=== PATIENT | male | born 1985 | race Caucasian/White ===

== ENCOUNTER 2019-09-05 14:02 | Outpatient (CLI) | payer OTHER | END 2019-09-05 23:59 | disposition home or self-care (01) | LOC: WOUND 14:02 | PROVIDERS: ATTEND Internal Medicine | DX: E11.621 Type 2 diabetes mellitus with foot ulcer (principal); L97.512 Non-pressure chronic ulcer of other part of right foot with fat layer exposed; L97.522 Non-pressure chronic ulcer of other part of left foot with fat layer exposed; Z87.891 Personal history of nicotine dependence; Z79.84 Long term (current) use of oral hypoglycemic drugs | CPT/HCPCS: 11042; 99215 ==

== ENCOUNTER 2019-10-31 12:28 | Emergency (ER) | payer SELFPAY ==
[~2019-10-31] VITALS: Ht 182.9 cm; Wt 86.0 kg
[2019-10-31] MEDS ORDERED: SODIUM CHLORIDE FLUSH 10ML SYR IVF ONE (13:30)
[2019-10-31] MEDS ORDERED: SODIUM CHLORIDE 0.9% 1,000ML IVBOLUS ONE (13:30)
[2019-10-31] MEDS ORDERED: VANCOMYCIN PER PHARMACY MC PRN (13:30)
[2019-10-31 13:46] LABS: MEAN CORPUSCULAR HEMOGLOBIN 29.5 pg (27.5-34.5); MEAN CORPUSCULAR HGB CONC 32.9 g/dL (33.2-36.2); MEAN CORPUSCULAR VOLUME 89.5 fL (81-97); MEAN PLATELET VOLUME 9.4 fL (7.4-10.4); PLATELET COUNT 313 x10^3/uL (130-400); RED CELL DISTRIBUTION WIDTH 12.4 % (9.4-14.8)
--- NOTE | 2019-10-31 13:50 | NUR ---
pt resting in room. vss. judson started. no needs expressed. awaiting further orders and plan.
[2019-10-31 13:57] LABS: ALBUMIN 3.2 g/dL (3.4-5.0); ANION GAP 7 mmol/L (5-15); CALCIUM 9.6 mg/dL (8.5-10.1); CHLORIDE 98 mmol/L (98-107); CREATININE 0.71 mg/dL (0.7-1.3)
[2019-10-31] MEDS ORDERED: VANCOMYCIN 2,000 MG in SODIUM CHLORIDE 0.9% 500 ML IV ONE (14:00)
[2019-10-31 14:42] LABS: MD SCAN
[2019-10-31 14:43] LABS: BASOPHILS # (AUTO) 0.07 x10^3/uL (0-0.1); BASOPHILS % (AUTO) 0 % (0-1); EOSINOPHILS # (AUTO) 0.01 x10^3/uL (0-0.4); EOSINOPHILS % (AUTO) 0 % (1-7); LYMPHOCYTES # (AUTO) 1.07 x10^3/uL (1-3.4); LYMPHOCYTES % (AUTO) 7 % (22-44); MONOCYTES # (AUTO) 0.62 x10^3/uL (0.2-0.8); MONOCYTES % (AUTO) 4 % (2-9); NEUTROPHILS # (AUTO) 13.87 x10^3/uL (1.8-6.8); NEUTROPHILS % (AUTO) 89 % (42-75)
[2019-10-31 15:23] VITALS: BP 128/82
--- NOTE | 2019-10-31 15:24 | NUR ---
pt resting in room. vss. no needs expressed. waiting for iv medications to finish to dc.
== END 2019-10-31 16:28 | disposition home or self-care (01) ==
LOC: ED 13:47
DX: L03.115 Cellulitis of right lower limb (principal); E10.9 Type 1 diabetes mellitus without complications; Z88.0 Allergy status to penicillin
CPT/HCPCS: 36415; 73630; 80048; 82040; 83605; 85025; 87040; 96365; 96366; 99284; J3370; J7030; J7040

== ENCOUNTER 2019-11-03 17:34 | Inpatient (IN) | payer BC, OTHER ==
[~2019-11-03] VITALS: Ht 182.9 cm; Wt 85.5 kg
[~2019-11-03 17:34] MED LIST: CLINDAMYCIN PMX 600MG/50ML 50 ML IV ONE; SODIUM CHLORIDE FLUSH 10ML SYR IVF ONE
[2019-11-03] MEDS ORDERED: VANCOMYCIN PER PHARMACY MC ONE (18:30)
[2019-11-03 18:46] LABS: BASOPHILS # (AUTO) 0.07 x10^3/uL (0-0.1); BASOPHILS % (AUTO) 1 % (0-1); EOSINOPHILS # (AUTO) 0.08 x10^3/uL (0-0.4); EOSINOPHILS % (AUTO) 1 % (1-7); LYMPHOCYTES # (AUTO) 2.12 x10^3/uL (1-3.4); LYMPHOCYTES % (AUTO) 16 % (22-44); MD NO; MEAN CORPUSCULAR HEMOGLOBIN 29.7 pg (27.5-34.5); MEAN CORPUSCULAR HGB CONC 33.7 g/dL (33.2-36.2); MEAN CORPUSCULAR VOLUME 88.2 fL (81-97); MEAN PLATELET VOLUME 9.3 fL (7.4-10.4); MONOCYTES # (AUTO) 0.94 x10^3/uL (0.2-0.8); MONOCYTES % (AUTO) 7 % (2-9); NEUTROPHILS # (AUTO) 10.02 x10^3/uL (1.8-6.8); NEUTROPHILS % (AUTO) 76 % (42-75); PLATELET COUNT 344 x10^3/uL (130-400); RED BLOOD COUNT 5.02 x10^6/uL (4.38-5.82)
[2019-11-03 18:53] LABS: ALBUMIN 2.8 g/dL (3.4-5.0); ANION GAP 10 mmol/L (5-15); CHLORIDE 97 mmol/L (98-107); CREATININE 0.84 mg/dL (0.7-1.3)
[2019-11-03] MEDS ORDERED: CLINDAMYCIN PMX 600MG/50ML 50 ML IV ONE (19:00)
[2019-11-03] MEDS ORDERED: SODIUM CHLORIDE 0.9% 1,000ML IVBOLUS ONE (19:00)
[2019-11-03] MEDS ORDERED: GOLYTELY 4,000ML ORAL.SOL PO ONE (19:30)
--- NOTE | 2019-11-03 19:37 | NUR ---
DUPLICATE ORDERS FOR CLEOCIN; WILL CONSULT DR GARNICA
--- NOTE | 2019-11-03 19:38 | NUR ---
VO DR ALANIZ: CANCEL DUPLICATE CLEOCIN ORDER.
[2019-11-03] MEDS ORDERED: CLINDAMYCIN PMX 600MG/50ML 0 ML ONE (19:46)
[2019-11-03] MEDS ORDERED: VANCOMYCIN 2,100 MG in SODIUM CHLORIDE 0.9% 500 ML IV ONE (20:00)
[2019-11-03] MEDS ORDERED: MONT10TA6 PO (20:00)
[2019-11-03] MEDS ORDERED: CLIN150C14 PO (20:01)
--- NOTE | 2019-11-03 20:06 | NUR ---
PT STATES IN JULY, HE HAD TO WEAR SPECIAL WORK BOOTS THAT WERE A LITTLE TOO SMALL. TOE BLISTER DEVELOPED. HAS SEEN MULTIPLE DOCTORS AND HAS HAD BEEN ON ANTIBIOTICS TWICE. TUESDAY NIGHT, FOOT STARTED SWELLING.
--- NOTE | 2019-11-03 20:17 | NUR ---
PT REPORT TO SOPHIA HUDSON FOR ROOM 359. PER TRISTAN'S MACHINE HOSTLER, RN UNABLE TO HANG MEDS ORDERED BY ED PROVIDER (SHABBIR). WILL TRY TO CONTACT HOSPITALIST RE: ORDER.
--- NOTE | 2019-11-03 20:20 | NUR ---
PER PHARMACY, VANCO HAS BEEN MIXED AND SENT TO ED. WILL CONSULT HOSPTIALIST RE: MINI ORDER.
--- NOTE | 2019-11-03 20:25 | NUR ---
DR SCHMIDT RETURNED MY CALL. DISCUSSED ANTIBIOTIC ORDERS. VO: CHERI SHEA, ORDERED PER ERP. HOLD CLEOMYCIN.
--- NOTE | 2019-11-03 20:25 | NUR ---
CALLED [facility] AFTER HOURS SERV[facility]; LEFT MESSAGE REQUESTING RETURN CALL FROM ADMITTING DOCTOR. Addendum: 11/03/19 at [address] SCHMIDT
--- NOTE | 2019-11-03 20:29 | NUR ---
BLD CX BAND NOT ON PT. WILL CONSULT LAB RE: BLD CX STATUS.
[2019-11-03] MEDS ORDERED: ACETAMINOPHEN 325 MG TABLET PO PRN (20:30)
[2019-11-03] MEDS ORDERED: DOCUSATE 100 MG CAPSULE PO PRN (20:30)
[2019-11-03] MEDS ORDERED: ENALAPRILAT 1.25 MG/ML, 2ML IVPush PRN (20:30)
[2019-11-03] MEDS ORDERED: KETOROLAC 30 MG/1 ML IV PRN (20:30)
--- NOTE | 2019-11-03 20:39 | NUR ---
PIV INITIATED. 1ST LITER NS HUNG, INFUSING W-O.
--- NOTE | 2019-11-03 20:43 | NUR ---
DR SCHMIDT BS
--- NOTE | 2019-11-03 20:43 | NUR ---
CALLED LAB, SPOKE TO CHELY - "BLD CX WERE DRAWN"
--- NOTE | 2019-11-03 20:51 | NUR ---
VANCOMYCIN HUNG, INFUSING AT 250ML/HR VIA PUMP. IV SITE PATENT.
[2019-11-03] MEDS ORDERED: VANCOMYCIN PER PHARMACY MC PRN (21:00)
[2019-11-03 21:16] VITALS: BP 116/80
[2019-11-03 21:23] LABS: HCT (SEDRATE) 44.3 % (39.2-51.8)
[2019-11-03] MEDS ORDERED: PHARMACOKINETIC MONITORING MC PRN (21:30)
[2019-11-03] MEDS ORDERED: PHARMACOKINETIC CONSULTATION MC ONE (21:30)
[2019-11-03] MEDS: CEFEPIME 2 GM in DEXTROSE 5% 100 ML IV SCH (22:57)
[2019-11-03] MEDS ORDERED: METF-649 PO (23:09)
[2019-11-03] MEDS ORDERED: GLIP10TA13 PO (23:10)
[2019-11-03 23:11] VITALS: BP 116/80
[2019-11-03] MEDS: INSULIN LISPRO 100 UNITS/ML, PEN SQ-INSULIN SCH (23:39)
[2019-11-03] MEDS: LACTATED RINGERS 1,000 ML IV SCH (23:40)
[2019-11-03] MEDS: METRONIDAZOLE PMX 500MG/100ML 100 ML IV SCH (23:49)
[2019-11-03] MEDS: ENOXAPARIN 30 MG/0.3 ML SQ SCH (23:50)
[2019-11-04 02:05] VITALS: BP 131/85
[2019-11-04 05:16] LABS: BASOPHILS # (AUTO) 0.03 x10^3/uL (0-0.1); BASOPHILS % (AUTO) 0 % (0-1); EOSINOPHILS # (AUTO) 0.18 x10^3/uL (0-0.4); EOSINOPHILS % (AUTO) 2 % (1-7); LYMPHOCYTES # (AUTO) 2.42 x10^3/uL (1-3.4); LYMPHOCYTES % (AUTO) 22 % (22-44); MD NO; MEAN CORPUSCULAR HEMOGLOBIN 29.5 pg (27.5-34.5); MEAN CORPUSCULAR HGB CONC 33.3 g/dL (33.2-36.2); MEAN CORPUSCULAR VOLUME 88.4 fL (81-97); MEAN PLATELET VOLUME 8.9 fL (7.4-10.4); MONOCYTES # (AUTO) 1.04 x10^3/uL (0.2-0.8); MONOCYTES % (AUTO) 10 % (2-9); NEUTROPHILS # (AUTO) 7.13 x10^3/uL (1.8-6.8); NEUTROPHILS % (AUTO) 66 % (42-75); PLATELET COUNT 333 x10^3/uL (130-400); RED CELL DISTRIBUTION WIDTH 12.1 % (9.4-14.8)
[2019-11-04 05:20] LABS: ANION GAP 8 mmol/L (5-15); CHLORIDE 101 mmol/L (98-107)
[2019-11-04 05:21] LABS: CREATININE 0.53 mg/dL (0.7-1.3)
[2019-11-04] MEDS: CEFEPIME 2 GM in DEXTROSE 5% 100 ML IV SCH ×3 (07:22→23:21)
[2019-11-04] MEDS: LACTATED RINGERS 1,000 ML IV SCH ×2 (07:30→14:10)
[2019-11-04 07:40] VITALS: BP 122/79
[2019-11-04] MEDS: INSULIN LISPRO 100 UNITS/ML, PEN SQ-INSULIN SCH ×5 (08:16→21:32)
[2019-11-04] MEDS: VANCOMYCIN 1,700 MG in SODIUM CHLORIDE 0.9% 250 ML IV SCH ×2 (09:00→21:31)
[2019-11-04] MEDS: METRONIDAZOLE PMX 500MG/100ML 100 ML IV SCH ×2 (09:13→15:30)
[2019-11-04] MEDS: ENOXAPARIN 30 MG/0.3 ML SQ SCH ×2 (09:13→17:12)
[2019-11-04 13:44] VITALS: BP 112/77
[2019-11-04 19:48] VITALS: BP 123/81
[2019-11-04] MEDS ORDERED: INSULIN GLARGINE 100 UNITS/ML, PEN SQ-INSULIN SCH (21:00)
[2019-11-05] MEDS: METRONIDAZOLE PMX 500MG/100ML 100 ML IV SCH ×4 (00:03→23:47)
[2019-11-05 01:20] VITALS: BP 106/67
[2019-11-05] MEDS: LACTATED RINGERS 1,000 ML IV SCH (01:50)
[2019-11-05 05:10] LABS: BASOPHILS # (AUTO) 0.03 x10^3/uL (0-0.1); BASOPHILS % (AUTO) 0 % (0-1); EOSINOPHILS # (AUTO) 0.18 x10^3/uL (0-0.4); EOSINOPHILS % (AUTO) 2 % (1-7); LYMPHOCYTES # (AUTO) 2.15 x10^3/uL (1-3.4); LYMPHOCYTES % (AUTO) 21 % (22-44); MD NO; MEAN CORPUSCULAR HEMOGLOBIN 29.3 pg (27.5-34.5); MEAN CORPUSCULAR HGB CONC 33.6 g/dL (33.2-36.2); MEAN CORPUSCULAR VOLUME 87.2 fL (81-97); MEAN PLATELET VOLUME 8.9 fL (7.4-10.4); MONOCYTES % (AUTO) 10 % (2-9); NEUTROPHILS # (AUTO) 6.82 x10^3/uL (1.8-6.8); NEUTROPHILS % (AUTO) 67 % (42-75); PLATELET COUNT 336 x10^3/uL (130-400); RED CELL DISTRIBUTION WIDTH 11.9 % (9.4-14.8)
[2019-11-05 05:20] LABS: CALCIUM 8.7 mg/dL (8.5-10.1); CHLORIDE 102 mmol/L (98-107)
[2019-11-05 05:27] LABS: ALANINE AMINOTRANSFERASE 9 U/L (12-78); ALBUMIN 2.4 g/dL (3.4-5.0); ALKALINE PHOSPHATASE 85 U/L (45-117); ANION GAP 5 mmol/L (5-15); BILIRUBIN,TOTAL 0.7 mg/dL (0.2-1.0); CREATININE 0.49 mg/dL (0.7-1.3); TOTAL PROTEIN 7.1 g/dL (6.4-8.2)
[2019-11-05] MEDS: CEFEPIME 2 GM in DEXTROSE 5% 100 ML IV SCH ×3 (06:33→23:04)
[2019-11-05 06:49] VITALS: BP 122/80
[2019-11-05] MEDS: INSULIN LISPRO 100 UNITS/ML, PEN SQ-INSULIN SCH ×4 (07:46→20:56)
[2019-11-05] MEDS: ENOXAPARIN 30 MG/0.3 ML SQ SCH ×2 (09:05→20:56)
[2019-11-05] MEDS: VANCOMYCIN 1,700 MG in SODIUM CHLORIDE 0.9% 250 ML IV SCH (10:08)
[2019-11-05 13:25] VITALS: BP 107/74
[2019-11-05] MEDS ORDERED: PROPOFOL 50 ML ONE (17:49)
[2019-11-05] MEDS ORDERED: FENTANYL PF 250 MCG/5ML ONE (17:50)
[2019-11-05] MEDS ORDERED: MIDAZOLAM 1 MG/ML, 2ML ONE (17:50)
[2019-11-05] MEDS ORDERED: ONDANSETRON 2MG/ML, 2ML ONE (17:58)
[2019-11-05] MEDS ORDERED: PROMETHAZINE 25 MG/ML, 1ML IV PRN (18:30)
[2019-11-05] MEDS ORDERED: EPHEDRINE 50 MG/ML, 1ML IM PRN (18:30)
[2019-11-05] MEDS ORDERED: DIAZEPAM 5 MG/ML, 2ML IVPush PRN (18:30)
[2019-11-05] MEDS ORDERED: DIPHENHYDRAMINE 50 MG/ML, 1ML IVPush PRN (18:30)
[2019-11-05] MEDS ORDERED: OXYcodone 5 MG/5 ML ORAL.SOL UDC PO PRN (18:30)
[2019-11-05] MEDS ORDERED: MORPHINE SULFATE 4 MG/ML, 1ML IVPush PRN (18:30)
[2019-11-05] MEDS ORDERED: EPHEDRINE 50 MG/ML, 1ML IVPush PRN (18:30)
[2019-11-05] MEDS ORDERED: FENTANYL PF 100 MCG/2ML IV PRN (18:30)
[2019-11-05] MEDS ORDERED: MEPERIDINE/PF 25MG/ML,1ML IVPush PRN (18:30)
[2019-11-05] MEDS ORDERED: MIDAZOLAM 1 MG/ML, 2ML IV PRN (18:30)
[2019-11-05] MEDS ORDERED: ONDANSETRON ODT 8 MG PO PRN (18:30)
[2019-11-05] MEDS ORDERED: METOPROLOL 1 MG/ML, 5ML IV PRN (18:30)
[2019-11-05] MEDS ORDERED: ONDANSETRON 2MG/ML, 2ML IV PRN (18:30)
[2019-11-05] MEDS ORDERED: FENTANYL PF 100 MCG/2ML ONE (18:51)
[2019-11-05] MEDS ORDERED: OXYcodone 5 MG/5 ML ORAL.SOL UDC ONE (18:52)
[2019-11-05 19:53] VITALS: BP 100/64
[2019-11-05] MEDS: VANCOMYCIN 1,500 MG in SODIUM CHLORIDE 0.9% 250 ML IV SCH (20:08)
[2019-11-05] MEDS: INSULIN GLARGINE 100 UNITS/ML, PEN SQ-INSULIN SCH (20:56)
[2019-11-05] MEDS: ONDANSETRON 2MG/ML, 2ML IVPush PRN (21:16)
[2019-11-06 01:35] VITALS: BP 105/65
[2019-11-06] MEDS: VANCOMYCIN 1,500 MG in SODIUM CHLORIDE 0.9% 250 ML IV SCH (04:03)
[2019-11-06] MEDS: ONDANSETRON 2MG/ML, 2ML IVPush PRN ×2 (05:16→17:21)
[2019-11-06 05:43] LABS: BASOPHILS # (AUTO) 0.04 x10^3/uL (0-0.1); BASOPHILS % (AUTO) 0 % (0-1); EOSINOPHILS # (AUTO) 0.16 x10^3/uL (0-0.4); EOSINOPHILS % (AUTO) 2 % (1-7); LYMPHOCYTES # (AUTO) 2.09 x10^3/uL (1-3.4); LYMPHOCYTES % (AUTO) 19 % (22-44); MD NO; MEAN CORPUSCULAR HEMOGLOBIN 29.8 pg (27.5-34.5); MEAN CORPUSCULAR HGB CONC 33.9 g/dL (33.2-36.2); MEAN CORPUSCULAR VOLUME 87.8 fL (81-97); MEAN PLATELET VOLUME 8.8 fL (7.4-10.4); MONOCYTES # (AUTO) 0.83 x10^3/uL (0.2-0.8); MONOCYTES % (AUTO) 8 % (2-9); NEUTROPHILS # (AUTO) 7.82 x10^3/uL (1.8-6.8); NEUTROPHILS % (AUTO) 72 % (42-75); PLATELET COUNT 329 x10^3/uL (130-400); RED BLOOD COUNT 4.63 x10^6/uL (4.38-5.82); RED CELL DISTRIBUTION WIDTH 12.3 % (9.4-14.8)
[2019-11-06 05:55] LABS: ALBUMIN 2.4 g/dL (3.4-5.0); ANION GAP 7 mmol/L (5-15); CALCIUM 8.7 mg/dL (8.5-10.1); CHLORIDE 103 mmol/L (98-107)
[2019-11-06 06:00] LABS: ALANINE AMINOTRANSFERASE 10 U/L (12-78); ALKALINE PHOSPHATASE 79 U/L (45-117); BILIRUBIN,TOTAL 0.9 mg/dL (0.2-1.0); CREATININE 0.57 mg/dL (0.7-1.3); TOTAL PROTEIN 6.8 g/dL (6.4-8.2)
[2019-11-06] MEDS: CEFEPIME 2 GM in DEXTROSE 5% 100 ML IV SCH ×2 (06:36→16:27)
[2019-11-06 07:29] VITALS: BP 118/79
[2019-11-06] MEDS: ENOXAPARIN 30 MG/0.3 ML SQ SCH ×2 (08:15→22:02)
[2019-11-06] MEDS: metFORMIN XR 500 MG TAB.ER.24H PO SCH ×2 (08:15→22:02)
[2019-11-06] MEDS: METRONIDAZOLE PMX 500MG/100ML 100 ML IV SCH (08:17)
[2019-11-06] MEDS: INSULIN LISPRO 100 UNITS/ML, PEN SQ-INSULIN SCH ×4 (08:24→22:03)
[2019-11-06] MEDS ORDERED: SODIUM CHLORIDE 0.9% IVPB SCH (12:00)
[2019-11-06] MEDS ORDERED: DAPTOMYCIN IVPB SCH (12:00)
[2019-11-06] MEDS: ERTAPENEM 1 GM in SODIUM CHLORIDE 0.9% 50 ML IV SCH (12:41)
[2019-11-06] MEDS: DAPTOMYCIN 550 MG in SODIUM CHLORIDE 0.9% 100 ML IVPB SCH (14:36)
[2019-11-06 19:17] VITALS: BP 112/77
[2019-11-06] MEDS: INSULIN GLARGINE 100 UNITS/ML, PEN SQ-INSULIN SCH (22:04)
[2019-11-07 00:11] VITALS: BP 103/70
[2019-11-07] MEDS: CEFEPIME 2 GM in DEXTROSE 5% 100 ML IV SCH ×2 (00:18→07:53)
[2019-11-07 04:41] LABS: BASOPHILS # (AUTO) 0.04 x10^3/uL (0-0.1); BASOPHILS % (AUTO) 0 % (0-1); EOSINOPHILS # (AUTO) 0.15 x10^3/uL (0-0.4); EOSINOPHILS % (AUTO) 2 % (1-7); LYMPHOCYTES # (AUTO) 2.48 x10^3/uL (1-3.4); LYMPHOCYTES % (AUTO) 30 % (22-44); MD NO; MEAN CORPUSCULAR HEMOGLOBIN 29.5 pg (27.5-34.5); MEAN CORPUSCULAR HGB CONC 33.2 g/dL (33.2-36.2); MEAN CORPUSCULAR VOLUME 88.6 fL (81-97); MEAN PLATELET VOLUME 8.8 fL (7.4-10.4); MONOCYTES # (AUTO) 0.74 x10^3/uL (0.2-0.8); MONOCYTES % (AUTO) 9 % (2-9); NEUTROPHILS % (AUTO) 59 % (42-75); PLATELET COUNT 342 x10^3/uL (130-400); RED BLOOD COUNT 4.71 x10^6/uL (4.38-5.82); RED CELL DISTRIBUTION WIDTH 12.3 % (9.4-14.8)
[2019-11-07 04:45] LABS: ALANINE AMINOTRANSFERASE 16 U/L (12-78); ALBUMIN 2.3 g/dL (3.4-5.0); ANION GAP 4 mmol/L (5-15); CALCIUM 8.5 mg/dL (8.5-10.1); CHLORIDE 103 mmol/L (98-107); CREATININE 0.49 mg/dL (0.7-1.3)
[2019-11-07 04:51] LABS: ALKALINE PHOSPHATASE 75 U/L (45-117); BILIRUBIN,TOTAL 0.3 mg/dL (0.2-1.0); CREATINE KINASE, TOTAL 11 U/L (39-308); TOTAL PROTEIN 6.6 g/dL (6.4-8.2)
[2019-11-07 06:54] VITALS: BP 124/89
[2019-11-07] MEDS: INSULIN LISPRO 100 UNITS/ML, PEN SQ-INSULIN SCH ×4 (07:52→21:44)
[2019-11-07] MEDS: metFORMIN XR 500 MG TAB.ER.24H PO SCH ×2 (09:31→20:23)
[2019-11-07] MEDS: ENOXAPARIN 30 MG/0.3 ML SQ SCH ×2 (09:31→20:24)
[2019-11-07] MEDS: ERTAPENEM 1 GM in SODIUM CHLORIDE 0.9% 50 ML IV SCH (11:11)
[2019-11-07] MEDS: DAPTOMYCIN 550 MG in SODIUM CHLORIDE 0.9% 100 ML IVPB SCH (15:25)
[2019-11-07 18:52] VITALS: BP 108/72
[2019-11-07] MEDS: INSULIN GLARGINE 100 UNITS/ML, PEN SQ-INSULIN SCH (21:44)
[2019-11-08 00:51] VITALS: BP 123/80
[2019-11-08 05:24] LABS: BASOPHILS # (AUTO) 0.04 x10^3/uL (0-0.1); BASOPHILS % (AUTO) 0 % (0-1); EOSINOPHILS # (AUTO) 0.13 x10^3/uL (0-0.4); EOSINOPHILS % (AUTO) 2 % (1-7); LYMPHOCYTES # (AUTO) 3.05 x10^3/uL (1-3.4); LYMPHOCYTES % (AUTO) 38 % (22-44); MD NO; MEAN CORPUSCULAR HEMOGLOBIN 29.7 pg (27.5-34.5); MEAN CORPUSCULAR HGB CONC 33.4 g/dL (33.2-36.2); MEAN CORPUSCULAR VOLUME 88.9 fL (81-97); MEAN PLATELET VOLUME 8.6 fL (7.4-10.4); MONOCYTES # (AUTO) 0.74 x10^3/uL (0.2-0.8); MONOCYTES % (AUTO) 9 % (2-9); NEUTROPHILS # (AUTO) 4.13 x10^3/uL (1.8-6.8); NEUTROPHILS % (AUTO) 51 % (42-75); PLATELET COUNT 344 x10^3/uL (130-400); RED BLOOD COUNT 4.91 x10^6/uL (4.38-5.82); RED CELL DISTRIBUTION WIDTH 12.2 % (9.4-14.8)
[2019-11-08 05:29] LABS: ALANINE AMINOTRANSFERASE 28 U/L (12-78); ALBUMIN 2.5 g/dL (3.4-5.0); ANION GAP 3 mmol/L (5-15); CALCIUM 8.9 mg/dL (8.5-10.1); CHLORIDE 103 mmol/L (98-107); CREATININE 0.51 mg/dL (0.7-1.3)
[2019-11-08 05:31] LABS: ALKALINE PHOSPHATASE 79 U/L (45-117); BILIRUBIN,TOTAL 0.5 mg/dL (0.2-1.0); TOTAL PROTEIN 7.1 g/dL (6.4-8.2)
[2019-11-08] MEDS: INSULIN LISPRO 100 UNITS/ML, PEN SQ-INSULIN SCH ×4 (07:00→21:48)
[2019-11-08 07:01] VITALS: BP 111/75
[2019-11-08] MEDS: MONTELUKAST 10 MG TABLET PO SCH (08:43)
[2019-11-08] MEDS: ENOXAPARIN 30 MG/0.3 ML SQ SCH ×2 (08:43→21:32)
[2019-11-08] MEDS ORDERED: metFORMIN XR 500 MG TAB.ER.24H PO SCH (09:00)
[2019-11-08 13:19] VITALS: BP 110/75
[2019-11-08] MEDS: DAPTOMYCIN 550 MG in SODIUM CHLORIDE 0.9% 100 ML IVPB SCH (14:10)
[2019-11-08] MEDS ORDERED: [UNRECOGNIZED DRUG - CODE] SQ (14:54)
[2019-11-08] MEDS: metFORMIN XR 500 MG TAB.ER.24H PO SCH (16:58)
[2019-11-08 18:40] VITALS: BP 107/73
[2019-11-08] MEDS: INSULIN GLARGINE 100 UNITS/ML, PEN SQ-INSULIN SCH (21:47)
[2019-11-09 02:40] VITALS: BP 102/69
[2019-11-09 06:15] LABS: BASOPHILS # (AUTO) 0.09 x10^3/uL (0-0.1); BASOPHILS % (AUTO) 1 % (0-1); EOSINOPHILS # (AUTO) 0.13 x10^3/uL (0-0.4); EOSINOPHILS % (AUTO) 2 % (1-7); LYMPHOCYTES # (AUTO) 2.51 x10^3/uL (1-3.4); LYMPHOCYTES % (AUTO) 33 % (22-44); MD NO; MEAN CORPUSCULAR HEMOGLOBIN 29.6 pg (27.5-34.5); MEAN CORPUSCULAR HGB CONC 33.9 g/dL (33.2-36.2); MEAN CORPUSCULAR VOLUME 87.2 fL (81-97); MEAN PLATELET VOLUME 8.6 fL (7.4-10.4); MONOCYTES # (AUTO) 0.62 x10^3/uL (0.2-0.8); MONOCYTES % (AUTO) 8 % (2-9); NEUTROPHILS # (AUTO) 4.16 x10^3/uL (1.8-6.8); NEUTROPHILS % (AUTO) 55 % (42-75); PLATELET COUNT 284 x10^3/uL (130-400); RED BLOOD COUNT 4.79 x10^6/uL (4.38-5.82); RED CELL DISTRIBUTION WIDTH 12.3 % (9.4-14.8)
[2019-11-09 06:25] LABS: ALANINE AMINOTRANSFERASE 33 U/L (12-78); ALBUMIN 2.6 g/dL (3.4-5.0); ANION GAP 5 mmol/L (5-15); CHLORIDE 105 mmol/L (98-107); CREATININE 0.45 mg/dL (0.7-1.3)
[2019-11-09 06:27] LABS: ALKALINE PHOSPHATASE 75 U/L (45-117); BILIRUBIN,TOTAL 0.2 mg/dL (0.2-1.0)
[2019-11-09] MEDS: INSULIN LISPRO 100 UNITS/ML, PEN SQ-INSULIN SCH ×2 (07:00→11:00)
[2019-11-09 07:13] VITALS: BP 108/73
[2019-11-09] MEDS: ENOXAPARIN 30 MG/0.3 ML SQ SCH (08:29)
[2019-11-09] MEDS: metFORMIN XR 500 MG TAB.ER.24H PO SCH (08:29)
[2019-11-09] MEDS: MONTELUKAST 10 MG TABLET PO SCH (08:29)
[2019-11-09] MEDS ORDERED: BLOO1EAC91 XX (12:23)
[2019-11-09] MEDS ORDERED: [UNRECOGNIZED DRUG - CODE] XX (12:23)
[2019-11-09] MEDS ORDERED: METF10007 PO (12:23)
[2019-11-09] MEDS ORDERED: INSU100I13 SQ-INSULIN (12:23)
[2019-11-09] MEDS ORDERED: DEXT-230 PO (12:23)
[2019-11-09] MEDS: DAPTOMYCIN 550 MG in SODIUM CHLORIDE 0.9% 100 ML IVPB SCH (14:27)
[2019-11-09 15:22] VITALS: BP 110/73
== END 2019-11-09 16:37 | disposition home health service (06) | DRG 854 ==
LOC: ED 18:25 → EDIP 19:02 → 3N 20:56
PROVIDERS: ADMIT Family Medicine; ATTEND Family Medicine
PROC: 0J9Q0ZZ Drainage of Right Foot Subcutaneous Tissue and Fascia, Open Approach (ICD-10-PCS; principal; 2019-11-05 18:00)
PROC: 02HV33Z Insertion of Infusion Device into Superior Vena Cava, Percutaneous Approach (ICD-10-PCS; 2019-11-06)
DX: A41.9 Sepsis, unspecified organism (principal); E87.2 Acidosis; L03.90 Cellulitis, unspecified; M86.9 Osteomyelitis, unspecified; E11.52 Type 2 diabetes mellitus with diabetic peripheral angiopathy with gangrene; Z16.29 Resistance to other single specified antibiotic; L02.611 Cutaneous abscess of right foot; L97.519 Non-pressure chronic ulcer of other part of right foot with unspecified severity; R65.20 Severe sepsis without septic shock; E11.621 Type 2 diabetes mellitus with foot ulcer; E11.65 Type 2 diabetes mellitus with hyperglycemia; Z82.49 Family history of ischemic heart disease and other diseases of the circulatory system; Z82.5 Family history of asthma and other chronic lower respiratory diseases; Z87.01 Personal history of pneumonia (recurrent); Z79.4 Long term (current) use of insulin; Z87.891 Personal history of nicotine dependence; Z91.19 Patient's noncompliance with other medical treatment and regimen; Z88.1 Allergy status to other antibiotic agents
CPT/HCPCS: 36415; 36573; 80048; 80053; 80202; 82040; 82550; 82962; 83036; 83605; 85025; 85651; 86140; 87040; 87070; 87075; 87077; 87186; 87205; 96361; 96372; 96374; 97162; G0378; J0878; J1335; J1650; J2250; J2405; J2704; J3010; J3370; C1751; J1815; J7030; J7040; J7050; J7120

== ENCOUNTER 2019-11-14 09:17 | Outpatient (CLI) | payer BC ==
[~2019-11-14 09:17] MED LIST changes: +BLOO1EAC91 XX; +CLIN150C14 PO; -CLINDAMYCIN PMX 600MG/50ML 50 ML IV ONE; +DEXT-230 PO; +GLIP10TA13 PO; +INSU100I13 SQ-INSULIN; +METF-649 PO; +METF10007 PO; +MONT10TA6 PO; -SODIUM CHLORIDE FLUSH 10ML SYR IVF ONE; +[UNRECOGNIZED DRUG - CODE] SQ; +[UNRECOGNIZED DRUG - CODE] XX
== END 2019-11-14 23:59 | disposition home or self-care (01) ==
LOC: WOUND 09:17
PROVIDERS: ATTEND Internal Medicine
DX: T81.89XD Other complications of procedures, not elsewhere classified, subsequent encounter (principal); E11.621 Type 2 diabetes mellitus with foot ulcer; L97.511 Non-pressure chronic ulcer of other part of right foot limited to breakdown of skin; Z87.891 Personal history of nicotine dependence; Y83.8 Other surgical procedures as the cause of abnormal reaction of the patient, or of later complication, without mention of misadventure at the time of the procedure
CPT/HCPCS: 11043; 11046; 97597

== ENCOUNTER 2019-11-21 08:45 | Outpatient (CLI) | payer BC | END 2019-11-21 23:59 | disposition home or self-care (01) | LOC: WOUND 08:45 | PROVIDERS: ATTEND Internal Medicine | DX: T81.89XD Other complications of procedures, not elsewhere classified, subsequent encounter (principal); E11.621 Type 2 diabetes mellitus with foot ulcer; L97.513 Non-pressure chronic ulcer of other part of right foot with necrosis of muscle; E11.52 Type 2 diabetes mellitus with diabetic peripheral angiopathy with gangrene; I96 Gangrene, not elsewhere classified; E11.69 Type 2 diabetes mellitus with other specified complication; M86.9 Osteomyelitis, unspecified; Z87.891 Personal history of nicotine dependence; Z88.0 Allergy status to penicillin; Z88.1 Allergy status to other antibiotic agents; Z79.4 Long term (current) use of insulin; Y83.8 Other surgical procedures as the cause of abnormal reaction of the patient, or of later complication, without mention of misadventure at the time of the procedure | CPT/HCPCS: 97597; 97598 ==

== ENCOUNTER 2019-11-28 10:24 | Outpatient (CLI) | payer BC | END 2019-11-28 23:59 | disposition home or self-care (01) | LOC: WOUND 10:24 | PROVIDERS: ATTEND Internal Medicine | DX: T81.89XD Other complications of procedures, not elsewhere classified, subsequent encounter (principal); E11.621 Type 2 diabetes mellitus with foot ulcer; L97.513 Non-pressure chronic ulcer of other part of right foot with necrosis of muscle; E11.52 Type 2 diabetes mellitus with diabetic peripheral angiopathy with gangrene; I96 Gangrene, not elsewhere classified; E11.69 Type 2 diabetes mellitus with other specified complication; M86.9 Osteomyelitis, unspecified; Z87.891 Personal history of nicotine dependence; Z88.0 Allergy status to penicillin; Z88.1 Allergy status to other antibiotic agents; Z79.4 Long term (current) use of insulin; Y83.8 Other surgical procedures as the cause of abnormal reaction of the patient, or of later complication, without mention of misadventure at the time of the procedure | CPT/HCPCS: 97597; 97598 ==

== ENCOUNTER → 2019-12-05 | Outpatient (CLI) | payer BC, MEDICAID | END | disposition home or self-care (01) | LOC: WOUND 09:13 | PROVIDERS: ATTEND Internal Medicine | DX: T81.89XD Other complications of procedures, not elsewhere classified, subsequent encounter (principal); E11.621 Type 2 diabetes mellitus with foot ulcer; E11.52 Type 2 diabetes mellitus with diabetic peripheral angiopathy with gangrene; I96 Gangrene, not elsewhere classified; E11.69 Type 2 diabetes mellitus with other specified complication; M86.9 Osteomyelitis, unspecified; Z87.891 Personal history of nicotine dependence; Z88.0 Allergy status to penicillin; Z88.1 Allergy status to other antibiotic agents; Z79.4 Long term (current) use of insulin; Y83.8 Other surgical procedures as the cause of abnormal reaction of the patient, or of later complication, without mention of misadventure at the time of the procedure | CPT/HCPCS: 11043 ==

== ENCOUNTER → 2019-12-19 | Outpatient (CLI) | payer MEDICAID | END | disposition home or self-care (01) | LOC: WOUND 08:05 | PROVIDERS: ATTEND Internal Medicine | DX: T81.89XD Other complications of procedures, not elsewhere classified, subsequent encounter (principal); E11.621 Type 2 diabetes mellitus with foot ulcer; L97.515 Non-pressure chronic ulcer of other part of right foot with muscle involvement without evidence of necrosis; L84 Corns and callosities; E11.52 Type 2 diabetes mellitus with diabetic peripheral angiopathy with gangrene; I96 Gangrene, not elsewhere classified; E11.69 Type 2 diabetes mellitus with other specified complication; M86.8X8 Other osteomyelitis, other site; Z87.891 Personal history of nicotine dependence; Z88.0 Allergy status to penicillin; Z88.1 Allergy status to other antibiotic agents; Z79.4 Long term (current) use of insulin; Y83.8 Other surgical procedures as the cause of abnormal reaction of the patient, or of later complication, without mention of misadventure at the time of the procedure | CPT/HCPCS: 97597 ==

== ENCOUNTER → 2019-12-26 | Outpatient (CLI) | payer MEDICAID | END | disposition home or self-care (01) | LOC: WOUND 11:03 | PROVIDERS: ATTEND Internal Medicine | DX: T81.89XD Other complications of procedures, not elsewhere classified, subsequent encounter (principal); E11.621 Type 2 diabetes mellitus with foot ulcer; L97.515 Non-pressure chronic ulcer of other part of right foot with muscle involvement without evidence of necrosis; L84 Corns and callosities; E11.52 Type 2 diabetes mellitus with diabetic peripheral angiopathy with gangrene; I96 Gangrene, not elsewhere classified; E11.69 Type 2 diabetes mellitus with other specified complication; M86.8X8 Other osteomyelitis, other site; Z87.891 Personal history of nicotine dependence; Z88.0 Allergy status to penicillin; Z88.1 Allergy status to other antibiotic agents; Z79.4 Long term (current) use of insulin; Y83.8 Other surgical procedures as the cause of abnormal reaction of the patient, or of later complication, without mention of misadventure at the time of the procedure | CPT/HCPCS: 97597 ==

== ENCOUNTER 2020-01-02 08:35 | Outpatient (CLI) | payer MEDICAID | END 2020-01-02 23:59 | disposition home or self-care (01) | LOC: WOUND 08:35 | PROVIDERS: ATTEND Internal Medicine | DX: T81.89XD Other complications of procedures, not elsewhere classified, subsequent encounter (principal); E11.621 Type 2 diabetes mellitus with foot ulcer; L97.515 Non-pressure chronic ulcer of other part of right foot with muscle involvement without evidence of necrosis; L84 Corns and callosities; E11.52 Type 2 diabetes mellitus with diabetic peripheral angiopathy with gangrene; I96 Gangrene, not elsewhere classified; E11.69 Type 2 diabetes mellitus with other specified complication; M86.8X8 Other osteomyelitis, other site; Z87.891 Personal history of nicotine dependence; Z88.0 Allergy status to penicillin; Z88.1 Allergy status to other antibiotic agents; Z79.4 Long term (current) use of insulin; Y83.8 Other surgical procedures as the cause of abnormal reaction of the patient, or of later complication, without mention of misadventure at the time of the procedure | CPT/HCPCS: 97597 ==

== ENCOUNTER → 2020-01-09 | Outpatient (CLI) | payer MEDICAID | END | disposition home or self-care (01) | LOC: WOUND 11:29 | PROVIDERS: ATTEND Internal Medicine | DX: T81.89XD Other complications of procedures, not elsewhere classified, subsequent encounter (principal); E11.621 Type 2 diabetes mellitus with foot ulcer; L97.515 Non-pressure chronic ulcer of other part of right foot with muscle involvement without evidence of necrosis; L84 Corns and callosities; E11.52 Type 2 diabetes mellitus with diabetic peripheral angiopathy with gangrene; I96 Gangrene, not elsewhere classified; E11.69 Type 2 diabetes mellitus with other specified complication; M86.8X8 Other osteomyelitis, other site; Z87.891 Personal history of nicotine dependence; Z88.0 Allergy status to penicillin; Z88.1 Allergy status to other antibiotic agents; Z79.4 Long term (current) use of insulin; Y83.8 Other surgical procedures as the cause of abnormal reaction of the patient, or of later complication, without mention of misadventure at the time of the procedure | CPT/HCPCS: 97597 ==

== ENCOUNTER 2020-01-16 10:34 | Outpatient (CLI) | payer MEDICAID | END 2020-01-16 23:59 | disposition home or self-care (01) | LOC: WOUND 10:34 | PROVIDERS: ATTEND Internal Medicine | DX: T81.89XD Other complications of procedures, not elsewhere classified, subsequent encounter (principal); E11.621 Type 2 diabetes mellitus with foot ulcer; L97.515 Non-pressure chronic ulcer of other part of right foot with muscle involvement without evidence of necrosis; L84 Corns and callosities; E11.52 Type 2 diabetes mellitus with diabetic peripheral angiopathy with gangrene; I96 Gangrene, not elsewhere classified; E11.69 Type 2 diabetes mellitus with other specified complication; M86.8X8 Other osteomyelitis, other site; Z87.891 Personal history of nicotine dependence; Z88.0 Allergy status to penicillin; Z88.1 Allergy status to other antibiotic agents; Z79.4 Long term (current) use of insulin; Y83.8 Other surgical procedures as the cause of abnormal reaction of the patient, or of later complication, without mention of misadventure at the time of the procedure | CPT/HCPCS: 97597 ==

== ENCOUNTER → 2020-02-01 | Outpatient (CLI) | payer MEDICAID | END | disposition home or self-care (01) | LOC: WOUND 10:06 | PROVIDERS: ATTEND Internal Medicine | DX: T81.89XD Other complications of procedures, not elsewhere classified, subsequent encounter (principal); E11.621 Type 2 diabetes mellitus with foot ulcer; L97.512 Non-pressure chronic ulcer of other part of right foot with fat layer exposed; L84 Corns and callosities; E11.52 Type 2 diabetes mellitus with diabetic peripheral angiopathy with gangrene; I96 Gangrene, not elsewhere classified; E11.69 Type 2 diabetes mellitus with other specified complication; M86.8X8 Other osteomyelitis, other site; Z87.891 Personal history of nicotine dependence; Z88.0 Allergy status to penicillin; Z88.1 Allergy status to other antibiotic agents; Z79.4 Long term (current) use of insulin; Y83.8 Other surgical procedures as the cause of abnormal reaction of the patient, or of later complication, without mention of misadventure at the time of the procedure | CPT/HCPCS: 11042 ==

== ENCOUNTER → 2020-02-06 | Outpatient (CLI) | payer MEDICAID | END | disposition home or self-care (01) | LOC: WOUND 14:23 | PROVIDERS: ATTEND Internal Medicine | DX: T81.89XD Other complications of procedures, not elsewhere classified, subsequent encounter (principal); E11.621 Type 2 diabetes mellitus with foot ulcer; L97.515 Non-pressure chronic ulcer of other part of right foot with muscle involvement without evidence of necrosis; L84 Corns and callosities; E11.52 Type 2 diabetes mellitus with diabetic peripheral angiopathy with gangrene; I96 Gangrene, not elsewhere classified; E11.69 Type 2 diabetes mellitus with other specified complication; M86.8X8 Other osteomyelitis, other site; Z87.891 Personal history of nicotine dependence; Z88.0 Allergy status to penicillin; Z88.1 Allergy status to other antibiotic agents; Z79.4 Long term (current) use of insulin; Y83.8 Other surgical procedures as the cause of abnormal reaction of the patient, or of later complication, without mention of misadventure at the time of the procedure | CPT/HCPCS: 97597 ==

== ENCOUNTER → 2020-02-13 | Outpatient (CLI) | payer MEDICAID | END | disposition home or self-care (01) | LOC: WOUND 14:41 | PROVIDERS: ATTEND Internal Medicine | DX: E11.621 Type 2 diabetes mellitus with foot ulcer (principal); L97.515 Non-pressure chronic ulcer of other part of right foot with muscle involvement without evidence of necrosis; L84 Corns and callosities; E11.52 Type 2 diabetes mellitus with diabetic peripheral angiopathy with gangrene; I96 Gangrene, not elsewhere classified; E11.69 Type 2 diabetes mellitus with other specified complication; M86.8X8 Other osteomyelitis, other site; Z87.891 Personal history of nicotine dependence; Z88.0 Allergy status to penicillin; Z88.1 Allergy status to other antibiotic agents; Z79.4 Long term (current) use of insulin; Y83.8 Other surgical procedures as the cause of abnormal reaction of the patient, or of later complication, without mention of misadventure at the time of the procedure | CPT/HCPCS: 97597 ==

== ENCOUNTER → 2020-02-20 | Outpatient (CLI) | payer MEDICAID | END | disposition home or self-care (01) | LOC: WOUND 08:17 | PROVIDERS: ATTEND Internal Medicine | DX: E11.621 Type 2 diabetes mellitus with foot ulcer (principal); L97.515 Non-pressure chronic ulcer of other part of right foot with muscle involvement without evidence of necrosis; L84 Corns and callosities; E11.52 Type 2 diabetes mellitus with diabetic peripheral angiopathy with gangrene; I96 Gangrene, not elsewhere classified; E11.69 Type 2 diabetes mellitus with other specified complication; M86.8X8 Other osteomyelitis, other site; Z87.891 Personal history of nicotine dependence; Z88.0 Allergy status to penicillin; Z88.1 Allergy status to other antibiotic agents; Z79.4 Long term (current) use of insulin; Y83.8 Other surgical procedures as the cause of abnormal reaction of the patient, or of later complication, without mention of misadventure at the time of the procedure | CPT/HCPCS: 97597 ==

== ENCOUNTER → 2020-02-27 | Outpatient (CLI) | payer MEDICAID | END | disposition home or self-care (01) | LOC: WOUND 08:08 | PROVIDERS: ATTEND Internal Medicine Cardiovascular Disease | DX: E11.621 Type 2 diabetes mellitus with foot ulcer (principal); L97.511 Non-pressure chronic ulcer of other part of right foot limited to breakdown of skin; L84 Corns and callosities; E11.52 Type 2 diabetes mellitus with diabetic peripheral angiopathy with gangrene; I96 Gangrene, not elsewhere classified; E11.69 Type 2 diabetes mellitus with other specified complication; M86.8X8 Other osteomyelitis, other site; Z87.891 Personal history of nicotine dependence; Z88.0 Allergy status to penicillin; Z88.1 Allergy status to other antibiotic agents; Z79.4 Long term (current) use of insulin; Y83.8 Other surgical procedures as the cause of abnormal reaction of the patient, or of later complication, without mention of misadventure at the time of the procedure | CPT/HCPCS: 99212 ==

== ENCOUNTER → 2020-03-10 | Outpatient (CLI) | payer MEDICAID | END | disposition home or self-care (01) | LOC: WOUND 14:38 | PROVIDERS: ATTEND Internal Medicine | DX: E11.621 Type 2 diabetes mellitus with foot ulcer (principal); L97.511 Non-pressure chronic ulcer of other part of right foot limited to breakdown of skin; L84 Corns and callosities; E11.52 Type 2 diabetes mellitus with diabetic peripheral angiopathy with gangrene; I96 Gangrene, not elsewhere classified; E11.69 Type 2 diabetes mellitus with other specified complication; M86.8X8 Other osteomyelitis, other site; Z87.891 Personal history of nicotine dependence; Z88.0 Allergy status to penicillin; Z88.1 Allergy status to other antibiotic agents; Z79.4 Long term (current) use of insulin | CPT/HCPCS: 97597 ==

== ENCOUNTER → 2020-03-19 | Outpatient (CLI) | payer MEDICAID | END | disposition home or self-care (01) | LOC: WOUND 12:54 | PROVIDERS: ATTEND Internal Medicine | DX: E11.621 Type 2 diabetes mellitus with foot ulcer (principal); L97.511 Non-pressure chronic ulcer of other part of right foot limited to breakdown of skin; L84 Corns and callosities; E11.52 Type 2 diabetes mellitus with diabetic peripheral angiopathy with gangrene; I96 Gangrene, not elsewhere classified; E11.69 Type 2 diabetes mellitus with other specified complication; M86.8X8 Other osteomyelitis, other site; Z87.891 Personal history of nicotine dependence; Z88.0 Allergy status to penicillin; Z88.1 Allergy status to other antibiotic agents; Z79.4 Long term (current) use of insulin | CPT/HCPCS: 97597 ==

== ENCOUNTER → 2020-03-26 | Outpatient (CLI) | payer MEDICAID | END | disposition home or self-care (01) | LOC: WOUND 08:07 | PROVIDERS: ATTEND Internal Medicine | DX: E11.621 Type 2 diabetes mellitus with foot ulcer (principal); L97.512 Non-pressure chronic ulcer of other part of right foot with fat layer exposed; E11.622 Type 2 diabetes mellitus with other skin ulcer; L97.212 Non-pressure chronic ulcer of right calf with fat layer exposed; L84 Corns and callosities; E11.52 Type 2 diabetes mellitus with diabetic peripheral angiopathy with gangrene; I96 Gangrene, not elsewhere classified; E11.69 Type 2 diabetes mellitus with other specified complication; M86.8X8 Other osteomyelitis, other site; Z87.891 Personal history of nicotine dependence; Z88.0 Allergy status to penicillin; Z88.1 Allergy status to other antibiotic agents; Z79.4 Long term (current) use of insulin | CPT/HCPCS: 97597 ==

== ENCOUNTER → 2020-03-26 | Outpatient (CLI) | payer MEDICAID | END | disposition home or self-care (01) | LOC: CFH 11:27 | PROVIDERS: ATTEND Internal Medicine | DX: E11.621 Type 2 diabetes mellitus with foot ulcer (principal); L97.512 Non-pressure chronic ulcer of other part of right foot with fat layer exposed ==

== ENCOUNTER → 2020-04-02 | Outpatient (CLI) | payer MEDICAID | END | disposition home or self-care (01) | LOC: WOUND 08:43 | PROVIDERS: ATTEND Internal Medicine | DX: E11.621 Type 2 diabetes mellitus with foot ulcer (principal); L97.511 Non-pressure chronic ulcer of other part of right foot limited to breakdown of skin; E11.622 Type 2 diabetes mellitus with other skin ulcer; L97.212 Non-pressure chronic ulcer of right calf with fat layer exposed; L84 Corns and callosities; E11.52 Type 2 diabetes mellitus with diabetic peripheral angiopathy with gangrene; I96 Gangrene, not elsewhere classified; E11.69 Type 2 diabetes mellitus with other specified complication; M86.8X8 Other osteomyelitis, other site; Z87.891 Personal history of nicotine dependence; Z88.0 Allergy status to penicillin; Z88.1 Allergy status to other antibiotic agents; Z79.4 Long term (current) use of insulin | CPT/HCPCS: 97597 ==

== ENCOUNTER → 2020-04-09 | Outpatient (CLI) | payer MEDICAID | END | disposition home or self-care (01) | LOC: WOUND 08:00 | PROVIDERS: ATTEND Internal Medicine | DX: E11.621 Type 2 diabetes mellitus with foot ulcer (principal); L97.512 Non-pressure chronic ulcer of other part of right foot with fat layer exposed; E11.69 Type 2 diabetes mellitus with other specified complication; M86.8X8 Other osteomyelitis, other site; E11.52 Type 2 diabetes mellitus with diabetic peripheral angiopathy with gangrene; I96 Gangrene, not elsewhere classified; L84 Corns and callosities; Z79.4 Long term (current) use of insulin; Z87.891 Personal history of nicotine dependence | CPT/HCPCS: 97597 ==

== ENCOUNTER → 2020-04-23 | Outpatient (CLI) | payer MEDICAID | END | disposition home or self-care (01) | LOC: WOUND 08:13 | PROVIDERS: ATTEND Internal Medicine | DX: E11.621 Type 2 diabetes mellitus with foot ulcer (principal); L97.512 Non-pressure chronic ulcer of other part of right foot with fat layer exposed; E11.69 Type 2 diabetes mellitus with other specified complication; M86.8X8 Other osteomyelitis, other site; E11.52 Type 2 diabetes mellitus with diabetic peripheral angiopathy with gangrene; I96 Gangrene, not elsewhere classified; L84 Corns and callosities; Z79.4 Long term (current) use of insulin; Z87.891 Personal history of nicotine dependence; Z88.1 Allergy status to other antibiotic agents; Z88.0 Allergy status to penicillin | CPT/HCPCS: 11042 ==

== ENCOUNTER 2020-05-05 13:40 | Outpatient (CLI) | payer MEDICAID | END 2020-05-05 23:59 | disposition home or self-care (01) | LOC: WOUND 13:40 | PROVIDERS: ATTEND Internal Medicine | DX: E11.621 Type 2 diabetes mellitus with foot ulcer (principal); L97.512 Non-pressure chronic ulcer of other part of right foot with fat layer exposed; E11.69 Type 2 diabetes mellitus with other specified complication; M86.8X8 Other osteomyelitis, other site; E11.52 Type 2 diabetes mellitus with diabetic peripheral angiopathy with gangrene; I96 Gangrene, not elsewhere classified; L84 Corns and callosities; Z79.4 Long term (current) use of insulin; Z87.891 Personal history of nicotine dependence; Z88.1 Allergy status to other antibiotic agents; Z88.0 Allergy status to penicillin | CPT/HCPCS: 97597 ==

== ENCOUNTER → 2020-05-14 | Outpatient (CLI) | payer MEDICAID | END | disposition home or self-care (01) | LOC: WOUND 15:06 | PROVIDERS: ATTEND Internal Medicine | DX: E11.621 Type 2 diabetes mellitus with foot ulcer (principal); L97.512 Non-pressure chronic ulcer of other part of right foot with fat layer exposed; E11.69 Type 2 diabetes mellitus with other specified complication; M86.8X8 Other osteomyelitis, other site; E11.52 Type 2 diabetes mellitus with diabetic peripheral angiopathy with gangrene; I96 Gangrene, not elsewhere classified; L84 Corns and callosities; Z79.4 Long term (current) use of insulin; Z87.891 Personal history of nicotine dependence; Z88.1 Allergy status to other antibiotic agents; Z88.0 Allergy status to penicillin | CPT/HCPCS: 99212 ==

== ENCOUNTER → 2020-05-28 | Outpatient (CLI) | payer MEDICAID ==
[~2020-05-28] MED LIST changes: +GADOTERATE 10 MMOL/20 ML SYR ONE
== END | disposition home or self-care (01) ==
LOC: RAD 16:28
PROVIDERS: ATTEND Internal Medicine
DX: E11.621 Type 2 diabetes mellitus with foot ulcer (principal); L97.512 Non-pressure chronic ulcer of other part of right foot with fat layer exposed
CPT/HCPCS: 73720; A9575

== ENCOUNTER → 2020-05-28 | Outpatient (CLI) | payer MEDICAID ==
[~2020-05-28] MED LIST changes: -GADOTERATE 10 MMOL/20 ML SYR ONE
== END | disposition home or self-care (01) ==
LOC: WOUND 14:41
PROVIDERS: ATTEND Internal Medicine
DX: E11.621 Type 2 diabetes mellitus with foot ulcer (principal); L97.512 Non-pressure chronic ulcer of other part of right foot with fat layer exposed; E11.69 Type 2 diabetes mellitus with other specified complication; M86.8X8 Other osteomyelitis, other site; E11.52 Type 2 diabetes mellitus with diabetic peripheral angiopathy with gangrene; I96 Gangrene, not elsewhere classified; L84 Corns and callosities; Z79.4 Long term (current) use of insulin; Z87.891 Personal history of nicotine dependence; Z88.1 Allergy status to other antibiotic agents; Z88.0 Allergy status to penicillin
CPT/HCPCS: 97597

== ENCOUNTER 2020-07-09 10:31 | Inpatient (IN) | payer MEDICAID ==
[~2020-07-09] VITALS: Ht 182.9 cm; Wt 105.1 kg
[~2020-07-09 10:31] MED LIST changes: -METF-649 PO; +METF-734 PO
--- NOTE | 2020-07-09 11:17 | NUR ---
PT NOTED ERYTHEMA TOP OF RIGHT FOOT AND GREAT TOE STARTED APPROX 2 DAYS AGO AND THEN WHEN APPEARS TO BE A BLOOD BLISTER DEVELOPED YESTERDAY. PT BELIEVES IT WAS CAUSED BY A NEW PAIR OF BOOTS HE HAS BEEN WEARING. PT ADDTIONALLY STATES THAT HE HAD SURGERY ON THE SAME FOOT THIS LAST OCTOBER BECAUSE OF FROSTBITE. PT IS A DIABETIC TYPE II
[2020-07-09] MEDS ORDERED: SODIUM CHLORIDE FLUSH 10ML SYR IVF ONE (11:30)
[2020-07-09 11:53] LABS: BASOPHILS % (AUTO) 0 % (0-1); EOSINOPHILS % (AUTO) 1 % (1-7); LYMPHOCYTES % (AUTO) 11 % (22-44); MEAN CORPUSCULAR HGB CONC 34.5 g/dL (33.2-36.2); MEAN PLATELET VOLUME 9.2 fL (7.4-10.4); MONOCYTES % (AUTO) 9 % (2-9); NEUTROPHILS % (AUTO) 79 % (42-75); PLATELET COUNT 310 x10^3/uL (130-400); RED BLOOD COUNT 4.76 x10^6/uL (4.38-5.82); RED CELL DISTRIBUTION WIDTH 12.5 % (9.4-14.8)
[2020-07-09 12:04] LABS: ALBUMIN 3.2 g/dL (3.4-5.0); ANION GAP 6 mmol/L (5-15); CALCIUM 9.6 mg/dL (8.5-10.1); CHLORIDE 102 mmol/L (98-107); CREATININE 0.92 mg/dL (0.7-1.3)
[2020-07-09 12:09] LABS: MD SCAN
[2020-07-09] MEDS ORDERED: VANCOMYCIN PER PHARMACY MC PRN ×2 (12:30→14:00)
[2020-07-09] MEDS ORDERED: VANCOMYCIN 2,300 MG in SODIUM CHLORIDE 0.9% 500 ML IV ONE (13:00)
[2020-07-09] MEDS ORDERED: POLYETHYLENE GLYCOL 17 GM PACKET PO PRN (13:30)
[2020-07-09] MEDS ORDERED: ONDANSETRON 2MG/ML, 2ML IVPush PRN (13:30)
[2020-07-09] MEDS ORDERED: HYDROcodone/APAP 5/325 TABLET PO PRN (13:30)
[2020-07-09] MEDS ORDERED: IBUPROFEN 600 MG TABLET PO PRN (13:30)
[2020-07-09] MEDS ORDERED: GLUCAGON 1 MG IM PRN (13:30)
[2020-07-09] MEDS ORDERED: DEXTROSE 4 GM TAB.CHEW PO PRN (13:30)
[2020-07-09] MEDS ORDERED: DEXTROSE 50%, 50ML SYRINGE IVPush PRN (13:30)
[2020-07-09] MEDS ORDERED: DOCUSATE 100 MG CAPSULE PO PRN (13:30)
[2020-07-09] MEDS ORDERED: ACETAMINOPHEN 325 MG TABLET PO PRN (13:30)
--- NOTE | 2020-07-09 14:18 | NUR ---
BREAK RN: PT RESTING IN ROOM. NO ACUTE DISTRESS NOTED. CALL LIGHT IN PLACE. WILL CONTINUE TO MONITOR WHILE PRIMARY RN IS ON BREAK
[2020-07-09] MEDS ORDERED: GADOTERATE 10 MMOL/20 ML SYR ONE (15:22)
[2020-07-09 15:23] LABS: C-REACTIVE PROTEIN, QUANT 17.4 mg/dL (0.02-0.49); CHOL/HDL RATIO 4.8; LDL/HDL RATIO 2.8 (0.5-3.0)
[2020-07-09] MEDS: CEFTRIAXONE PMX 2GM/50ML 50 ML IVPB SCH (15:30)
[2020-07-09] MEDS: INSULIN LISPRO 100 UNITS/ML, PEN SQ-INSULIN SCH ×2 (16:00→20:35)
[2020-07-09 16:20] LABS: HCT (SEDRATE) 41.4 % (39.2-51.8)
[2020-07-09] MEDS ORDERED: PHARMACOKINETIC CONSULTATION MC ONE (18:30)
[2020-07-09] MEDS ORDERED: PHARMACOKINETIC MONITORING MC PRN (18:30)
[2020-07-09] MEDS: HEPARIN 5,000 UNITS/ML, 1ML SQ SCH (18:30)
[2020-07-09] MEDS: SODIUM CHLORIDE 0.9% 1,000 ML IV SCH (18:56)
[2020-07-09] MEDS: SODIUM CHLORIDE FLUSH 10ML SYR IVF SCH (18:57)
[2020-07-09 19:51] VITALS: BP 142/88
[2020-07-09] MEDS: INSULIN GLARGINE 100 UNITS/ML, PEN SQ-INSULIN SCH (20:43)
[2020-07-10 00:56] VITALS: BP 129/84
[2020-07-10] MEDS: SODIUM CHLORIDE 0.9% 1,000 ML IV SCH ×2 (00:59→17:31)
[2020-07-10] MEDS ORDERED: VANCOMYCIN 1,700 MG in SODIUM CHLORIDE 0.9% 250 ML IV SCH (01:00)
[2020-07-10] MEDS: HEPARIN 5,000 UNITS/ML, 1ML SQ SCH ×2 (05:27→13:30)
[2020-07-10 06:46] LABS: BASOPHILS % (AUTO) 0 % (0-1); EOSINOPHILS % (AUTO) 2 % (1-7); LYMPHOCYTES % (AUTO) 27 % (22-44); MEAN CORPUSCULAR HEMOGLOBIN 30.5 pg (27.5-34.5); MEAN CORPUSCULAR HGB CONC 34.9 g/dL (33.2-36.2); MEAN PLATELET VOLUME 8.7 fL (7.4-10.4); MONOCYTES % (AUTO) 9 % (2-9); NEUTROPHILS % (AUTO) 62 % (42-75); PLATELET COUNT 312 x10^3/uL (130-400); RED BLOOD COUNT 4.38 x10^6/uL (4.38-5.82); RED CELL DISTRIBUTION WIDTH 12.4 % (9.4-14.8)
[2020-07-10 06:52] LABS: CHLORIDE 103 mmol/L (98-107)
[2020-07-10 06:57] LABS: ANION GAP 4 mmol/L (5-15); CALCIUM 8.8 mg/dL (8.5-10.1); CREATININE 0.76 mg/dL (0.7-1.3)
[2020-07-10 07:09] LABS: MD NO
[2020-07-10] MEDS: INSULIN LISPRO 100 UNITS/ML, PEN SQ-INSULIN SCH ×4 (07:59→20:46)
[2020-07-10] MEDS: SODIUM CHLORIDE FLUSH 10ML SYR IVF SCH ×2 (08:00→21:00)
[2020-07-10] MEDS: MONTELUKAST 10 MG TABLET PO SCH (08:00)
[2020-07-10 08:17] VITALS: BP 120/86
[2020-07-10 12:11] VITALS: BP 121/85
[2020-07-10] MEDS: VANCOMYCIN 1,800 MG in SODIUM CHLORIDE 0.9% 250 ML IV SCH ×2 (12:47→20:59)
[2020-07-10] MEDS: CEFTRIAXONE PMX 2GM/50ML 50 ML IVPB SCH (15:12)
[2020-07-10] MEDS ORDERED: MIDAZOLAM 1 MG/ML, 2ML ONE (16:51)
[2020-07-10] MEDS ORDERED: FENTANYL PF 100 MCG/2ML ONE (16:51)
[2020-07-10] MEDS ORDERED: OXYcodone 5 MG/5 ML ORAL.SOL UDC PO PRN (17:00)
[2020-07-10] MEDS ORDERED: hydrALAzine 20 MG/ML, 1ML IV PRN (17:00)
[2020-07-10] MEDS ORDERED: ACETAMINOPHEN 325 MG TABLET PO PRN (17:00)
[2020-07-10] MEDS ORDERED: LABETALOL 5MG/ML, 20ML IV PRN (17:00)
[2020-07-10] MEDS ORDERED: HYDROmorphone 1 MG/ML, 1ML INJ IVPush PRN (17:00)
[2020-07-10] MEDS ORDERED: PROMETHAZINE 25 MG/ML, 1ML IVPush PRN (17:00)
[2020-07-10] MEDS ORDERED: MEPERIDINE/PF 25MG/0.5ML IVPush PRN (17:00)
[2020-07-10] MEDS ORDERED: FENTANYL PF 100 MCG/2ML IV PRN (17:00)
[2020-07-10] MEDS ORDERED: EPHEDRINE 50 MG/ML, 1ML IVPush PRN (17:00)
[2020-07-10] MEDS ORDERED: ONDANSETRON 2MG/ML, 2ML IVPush PRN (17:00)
[2020-07-10] MEDS ORDERED: KETOROLAC 30 MG/1 ML ONE (17:32)
[2020-07-10] MEDS ORDERED: PROPOFOL 10 MG/ML, 20ML ONE (17:51)
[2020-07-10] MEDS ORDERED: BUPIVACAINE/PF 0.5% ONE (17:51)
[2020-07-10] MEDS ORDERED: ONDANSETRON 2MG/ML, 2ML ONE (17:51)
[2020-07-10] MEDS ORDERED: SUCCINYLCHOLINE 20 MG/ML, 10ML ONE (17:51)
[2020-07-10] MEDS ORDERED: DEXAMETHASONE 4 MG/ML, 1ML ONE (17:51)
[2020-07-10 20:00] VITALS: BP 117/76
[2020-07-10] MEDS: INSULIN GLARGINE 100 UNITS/ML, PEN SQ-INSULIN SCH (20:46)
[2020-07-10] MEDS ORDERED: HYDROmorphone 1 MG/ML, 1ML INJ IV PRN (21:00)
[2020-07-10] MEDS ORDERED: OXYcodone/APAP 10/325MG TABLET PO PRN (21:00)
[2020-07-11 00:34] VITALS: BP 131/90
[2020-07-11] MEDS: SODIUM CHLORIDE 0.9% 1,000 ML IV SCH ×2 (01:53→15:40)
[2020-07-11] MEDS: VANCOMYCIN 1,800 MG in SODIUM CHLORIDE 0.9% 250 ML IV SCH ×3 (04:09→20:13)
[2020-07-11] MEDS: HEPARIN 5,000 UNITS/ML, 1ML SQ SCH ×3 (04:14→20:13)
[2020-07-11 06:08] LABS: BASOPHILS % (AUTO) 0 % (0-1); EOSINOPHILS % (AUTO) 0 % (1-7); LYMPHOCYTES % (AUTO) 11 % (22-44); MEAN CORPUSCULAR HEMOGLOBIN 29.9 pg (27.5-34.5); MEAN CORPUSCULAR HGB CONC 34.3 g/dL (33.2-36.2); MEAN PLATELET VOLUME 8.6 fL (7.4-10.4); MONOCYTES % (AUTO) 5 % (2-9); NEUTROPHILS % (AUTO) 84 % (42-75); PLATELET COUNT 317 x10^3/uL (130-400); RED BLOOD COUNT 4.54 x10^6/uL (4.38-5.82); RED CELL DISTRIBUTION WIDTH 12.6 % (9.4-14.8)
[2020-07-11 06:18] LABS: ANION GAP 8 mmol/L (5-15); CALCIUM 8.6 mg/dL (8.5-10.1); CHLORIDE 105 mmol/L (98-107)
[2020-07-11 06:21] LABS: CREATININE 0.76 mg/dL (0.7-1.3)
[2020-07-11 06:38] LABS: MD NO
[2020-07-11 07:07] VITALS: BP 131/86
[2020-07-11] MEDS: MONTELUKAST 10 MG TABLET PO SCH (08:33)
[2020-07-11] MEDS: SODIUM CHLORIDE FLUSH 10ML SYR IVF SCH ×2 (08:33→20:15)
[2020-07-11] MEDS: INSULIN LISPRO 100 UNITS/ML, PEN SQ-INSULIN SCH ×4 (08:33→20:14)
[2020-07-11 14:00] VITALS: BP 130/83
[2020-07-11] MEDS: CEFTRIAXONE PMX 2GM/50ML 50 ML IVPB SCH (15:40)
[2020-07-11 18:22] VITALS: BP 136/81
[2020-07-11] MEDS: INSULIN GLARGINE 100 UNITS/ML, PEN SQ-INSULIN SCH (20:14)
[2020-07-12 01:19] VITALS: BP 121/82
[2020-07-12] MEDS: SODIUM CHLORIDE 0.9% 1,000 ML IV SCH ×3 (02:31→23:51)
[2020-07-12 03:56] LABS: ANION GAP 5 mmol/L (5-15); CALCIUM 8.4 mg/dL (8.5-10.1); CHLORIDE 108 mmol/L (98-107); CREATININE 0.96 mg/dL (0.7-1.3)
[2020-07-12 03:59] LABS: VANCOMYCIN,TROUGH 31.8 mcg/mL (5.0-10.0)
[2020-07-12] MEDS: HEPARIN 5,000 UNITS/ML, 1ML SQ SCH ×3 (04:22→20:26)
[2020-07-12] MEDS: INSULIN LISPRO 100 UNITS/ML, PEN SQ-INSULIN SCH ×4 (07:00→20:27)
[2020-07-12 07:10] LABS: BASOPHILS % (AUTO) 1 % (0-1); EOSINOPHILS % (AUTO) 1 % (1-7); LYMPHOCYTES % (AUTO) 25 % (22-44); MEAN CORPUSCULAR HEMOGLOBIN 30.2 pg (27.5-34.5); MEAN CORPUSCULAR HGB CONC 34.5 g/dL (33.2-36.2); MEAN PLATELET VOLUME 9.1 fL (7.4-10.4); MONOCYTES % (AUTO) 11 % (2-9); NEUTROPHILS % (AUTO) 63 % (42-75); PLATELET COUNT 303 x10^3/uL (130-400); RED BLOOD COUNT 4.34 x10^6/uL (4.38-5.82); RED CELL DISTRIBUTION WIDTH 12.7 % (9.4-14.8)
[2020-07-12 07:14] LABS: MD NO
[2020-07-12 07:53] VITALS: BP 130/86
[2020-07-12] MEDS: MONTELUKAST 10 MG TABLET PO SCH (08:38)
[2020-07-12] MEDS: SODIUM CHLORIDE FLUSH 10ML SYR IVF SCH ×2 (08:38→20:28)
[2020-07-12] MEDS: SODIUM CHLORIDE 0.9% IVPB SCH (12:10)
[2020-07-12] MEDS: DAPTOMYCIN IVPB SCH (12:10)
[2020-07-12 12:57] VITALS: BP 138/89
[2020-07-12] MEDS: CEFTRIAXONE PMX 2GM/50ML 50 ML IVPB SCH (15:44)
[2020-07-12 19:47] VITALS: BP 133/85
[2020-07-12] MEDS: INSULIN GLARGINE 100 UNITS/ML, PEN SQ-INSULIN SCH (20:27)
[2020-07-13 01:04] VITALS: BP 153/88
[2020-07-13] MEDS: HEPARIN 5,000 UNITS/ML, 1ML SQ SCH ×3 (03:53→20:38)
[2020-07-13 07:05] VITALS: BP 146/91
[2020-07-13] MEDS: INSULIN LISPRO 100 UNITS/ML, PEN SQ-INSULIN SCH ×4 (07:51→20:39)
[2020-07-13] MEDS: MONTELUKAST 10 MG TABLET PO SCH (09:35)
[2020-07-13] MEDS: SODIUM CHLORIDE FLUSH 10ML SYR IVF SCH ×2 (09:35→20:40)
[2020-07-13] MEDS: SODIUM CHLORIDE 0.9% 1,000 ML IV SCH ×2 (09:36→20:38)
[2020-07-13] MEDS: DAPTOMYCIN IVPB SCH (12:18)
[2020-07-13] MEDS: SODIUM CHLORIDE 0.9% IVPB SCH (12:18)
[2020-07-13 13:39] VITALS: BP 144/89
[2020-07-13] MEDS: CEFTRIAXONE PMX 2GM/50ML 50 ML IVPB SCH (15:06)
[2020-07-13 19:24] VITALS: BP 152/91
[2020-07-13] MEDS: INSULIN GLARGINE 100 UNITS/ML, PEN SQ-INSULIN SCH (20:39)
[2020-07-14 00:40] VITALS: BP 149/82
[2020-07-14] MEDS: HEPARIN 5,000 UNITS/ML, 1ML SQ SCH ×3 (04:15→21:17)
[2020-07-14 05:43] LABS: BASOPHILS % (AUTO) 0 % (0-1); EOSINOPHILS % (AUTO) 2 % (1-7); LYMPHOCYTES % (AUTO) 29 % (22-44); MEAN CORPUSCULAR HEMOGLOBIN 29.5 pg (27.5-34.5); MEAN PLATELET VOLUME 8.7 fL (7.4-10.4); MONOCYTES % (AUTO) 10 % (2-9); NEUTROPHILS % (AUTO) 59 % (42-75); PLATELET COUNT 296 x10^3/uL (130-400); RED BLOOD COUNT 4.35 x10^6/uL (4.38-5.82); RED CELL DISTRIBUTION WIDTH 12.5 % (9.4-14.8)
[2020-07-14 05:53] LABS: ALBUMIN 2.5 g/dL (3.4-5.0); ANION GAP 4 mmol/L (5-15); CALCIUM 8.5 mg/dL (8.5-10.1); CHLORIDE 107 mmol/L (98-107)
[2020-07-14 05:58] LABS: MD NO
[2020-07-14 06:03] LABS: ALANINE AMINOTRANSFERASE 16 U/L (12-78); ALKALINE PHOSPHATASE 80 U/L (45-117); BILIRUBIN,TOTAL 0.4 mg/dL (0.2-1.0); C-REACTIVE PROTEIN, QUANT 3.28 mg/dL (0.02-0.49); CREATINE KINASE, TOTAL 18 U/L (39-308); CREATININE 0.79 mg/dL (0.7-1.3); TOTAL PROTEIN 6.5 g/dL (6.4-8.2)
[2020-07-14] MEDS: SODIUM CHLORIDE 0.9% 1,000 ML IV SCH (06:42)
[2020-07-14 06:58] VITALS: BP 136/78
[2020-07-14] MEDS: INSULIN LISPRO 100 UNITS/ML, PEN SQ-INSULIN SCH ×4 (07:00→21:17)
[2020-07-14] MEDS ORDERED: POTASSIUM CHLORIDE 20 MEQ in SODIUM CHLORIDE 0.9% 250 ML IV ONE (08:00)
[2020-07-14] MEDS: SODIUM CHLORIDE FLUSH 10ML SYR IVF SCH ×2 (08:13→21:18)
[2020-07-14] MEDS: MONTELUKAST 10 MG TABLET PO SCH ×2 (08:13→08:17)
[2020-07-14] MEDS ORDERED: CHLORHEXIDINE 15 ML UDC MM ONE (09:30)
[2020-07-14] MEDS ORDERED: BUPIVACAINE/PF 0.5% ONE (09:55)
[2020-07-14] MEDS ORDERED: FENTANYL PF 250 MCG/5ML ONE (10:00)
[2020-07-14] MEDS ORDERED: PROPOFOL 50 ML ONE ×2 (10:17→10:28)
[2020-07-14 10:44] LABS: HCT (SEDRATE) 37.8 % (39.2-51.8)
[2020-07-14] MEDS ORDERED: hydrALAzine 20 MG/ML, 1ML IV PRN (11:30)
[2020-07-14] MEDS ORDERED: PROMETHAZINE 25 MG/ML, 1ML IVPush PRN (11:30)
[2020-07-14] MEDS ORDERED: EPHEDRINE 50 MG/ML, 1ML IVPush PRN (11:30)
[2020-07-14] MEDS ORDERED: HYDROmorphone 1 MG/ML, 1ML INJ IVPush PRN (11:30)
[2020-07-14] MEDS ORDERED: ONDANSETRON 2MG/ML, 2ML IVPush PRN (11:30)
[2020-07-14] MEDS ORDERED: MEPERIDINE/PF 25MG/0.5ML IVPush PRN (11:30)
[2020-07-14] MEDS ORDERED: ACETAMINOPHEN 325 MG TABLET PO PRN (11:30)
[2020-07-14] MEDS ORDERED: LORazepam 2 MG/ML, 1ML IVPush PRN (11:30)
[2020-07-14] MEDS ORDERED: LABETALOL 5MG/ML, 20ML IV PRN (11:30)
[2020-07-14] MEDS ORDERED: FENTANYL PF 100 MCG/2ML IV PRN (11:30)
[2020-07-14] MEDS ORDERED: OXYcodone 5 MG/5 ML ORAL.SOL UDC PO PRN (11:30)
[2020-07-14] MEDS ORDERED: KETOROLAC 30 MG/1 ML IV PRN (11:30)
[2020-07-14] MEDS ORDERED: METHOCARBAMOL 1,000 MG in DEXTROSE 5% 100 ML IV PRN (11:30)
[2020-07-14] MEDS: SODIUM CHLORIDE 0.9% IVPB SCH (12:15)
[2020-07-14] MEDS: DAPTOMYCIN IVPB SCH (12:15)
[2020-07-14] MEDS: CEFTRIAXONE PMX 2GM/50ML 50 ML IVPB SCH (15:42)
[2020-07-14 18:45] VITALS: BP 132/86
[2020-07-14] MEDS: INSULIN GLARGINE 100 UNITS/ML, PEN SQ-INSULIN SCH (21:18)
[2020-07-14 23:55] VITALS: BP 132/78
[2020-07-15] MEDS: SODIUM CHLORIDE 0.9% 1,000 ML IV SCH ×3 (01:11→20:44)
[2020-07-15] MEDS: HEPARIN 5,000 UNITS/ML, 1ML SQ SCH ×3 (04:31→20:42)
[2020-07-15 04:55] LABS: BASOPHILS % (AUTO) 1 % (0-1); EOSINOPHILS % (AUTO) 2 % (1-7); LYMPHOCYTES % (AUTO) 26 % (22-44); MEAN CORPUSCULAR HEMOGLOBIN 29.3 pg (27.5-34.5); MEAN CORPUSCULAR HGB CONC 33.8 g/dL (33.2-36.2); MEAN PLATELET VOLUME 8.6 fL (7.4-10.4); MONOCYTES % (AUTO) 8 % (2-9); NEUTROPHILS % (AUTO) 63 % (42-75); PLATELET COUNT 325 x10^3/uL (130-400); RED BLOOD COUNT 4.17 x10^6/uL (4.38-5.82); RED CELL DISTRIBUTION WIDTH 12.3 % (9.4-14.8)
[2020-07-15 04:56] LABS: MD NO
[2020-07-15 04:59] LABS: ANION GAP 3 mmol/L (5-15); CALCIUM 8.8 mg/dL (8.5-10.1); CHLORIDE 105 mmol/L (98-107); CREATININE 0.86 mg/dL (0.7-1.3)
[2020-07-15] MEDS: MONTELUKAST 10 MG TABLET PO SCH (07:39)
[2020-07-15] MEDS: INSULIN LISPRO 100 UNITS/ML, PEN SQ-INSULIN SCH ×4 (07:39→20:43)
[2020-07-15] MEDS: SODIUM CHLORIDE FLUSH 10ML SYR IVF SCH ×2 (07:41→20:43)
[2020-07-15 08:08] VITALS: BP 143/88
[2020-07-15] MEDS: SODIUM CHLORIDE 0.9% IVPB SCH ×2 (12:00→16:05)
[2020-07-15] MEDS: DAPTOMYCIN IVPB SCH ×2 (12:00→16:05)
[2020-07-15 12:46] VITALS: BP 151/93
[2020-07-15 20:01] VITALS: BP 143/89
[2020-07-15] MEDS: INSULIN GLARGINE 100 UNITS/ML, PEN SQ-INSULIN SCH (20:43)
[2020-07-16 01:16] VITALS: BP 143/87
[2020-07-16] MEDS: HEPARIN 5,000 UNITS/ML, 1ML SQ SCH ×2 (04:49→13:33)
[2020-07-16 05:19] LABS: BASOPHILS % (AUTO) 1 % (0-1); EOSINOPHILS % (AUTO) 2 % (1-7); LYMPHOCYTES % (AUTO) 35 % (22-44); MEAN CORPUSCULAR HEMOGLOBIN 29.7 pg (27.5-34.5); MEAN CORPUSCULAR HGB CONC 34.1 g/dL (33.2-36.2); MEAN PLATELET VOLUME 8.6 fL (7.4-10.4); MONOCYTES % (AUTO) 10 % (2-9); NEUTROPHILS % (AUTO) 53 % (42-75); PLATELET COUNT 325 x10^3/uL (130-400); RED BLOOD COUNT 4.18 x10^6/uL (4.38-5.82); RED CELL DISTRIBUTION WIDTH 12.5 % (9.4-14.8)
[2020-07-16 05:22] LABS: MD NO
[2020-07-16 05:28] LABS: ANION GAP 5 mmol/L (5-15); CALCIUM 8.8 mg/dL (8.5-10.1); CHLORIDE 106 mmol/L (98-107)
[2020-07-16 05:30] LABS: CREATININE 0.84 mg/dL (0.7-1.3)
[2020-07-16 07:42] VITALS: BP 143/93
[2020-07-16] MEDS: INSULIN LISPRO 100 UNITS/ML, PEN SQ-INSULIN SCH ×3 (07:42→16:09)
[2020-07-16] MEDS: MONTELUKAST 10 MG TABLET PO SCH (08:58)
[2020-07-16] MEDS: SODIUM CHLORIDE FLUSH 10ML SYR IVF SCH (08:59)
[2020-07-16] MEDS: SODIUM CHLORIDE 0.9% 1,000 ML IV SCH ×2 (08:59→17:00)
[2020-07-16 11:45] VITALS: BP 36/95
[2020-07-16] MEDS ORDERED: OXYC5TAB2 PO (13:58)
[2020-07-16] MEDS: SODIUM CHLORIDE 0.9% IVPB SCH (15:59)
[2020-07-16] MEDS: DAPTOMYCIN IVPB SCH (15:59)
== END 2020-07-16 17:33 | disposition home or self-care (01) | DRG 617 ==
LOC: ED 11:26 → EDIP 12:43 → 3N 17:51
PROVIDERS: ADMIT Family Medicine; ATTEND Family Medicine
PROC: 0Y6P0Z0 Detachment at Right 1st Toe, Complete, Open Approach (ICD-10-PCS; principal; 2020-07-10 17:30)
PROC: 0YBM0ZZ Excision of Right Foot, Open Approach (ICD-10-PCS; 2020-07-14)
PROC: 02HV33Z Insertion of Infusion Device into Superior Vena Cava, Percutaneous Approach (ICD-10-PCS; 2020-07-14)
PROC: B548ZZA Ultrasonography of Superior Vena Cava, Guidance (ICD-10-PCS; 2020-07-14)
PROC: B5181ZA Fluoroscopy of Superior Vena Cava using Low Osmolar Contrast, Guidance (ICD-10-PCS; 2020-07-14)
DX: E11.69 Type 2 diabetes mellitus with other specified complication (principal); L03.115 Cellulitis of right lower limb; M86.171 Other acute osteomyelitis, right ankle and foot; M00.9 Pyogenic arthritis, unspecified; E11.65 Type 2 diabetes mellitus with hyperglycemia; Z79.2 Long term (current) use of antibiotics; Z79.4 Long term (current) use of insulin; Z82.49 Family history of ischemic heart disease and other diseases of the circulatory system; Z82.5 Family history of asthma and other chronic lower respiratory diseases; Z87.891 Personal history of nicotine dependence; Z88.0 Allergy status to penicillin; Z91.19 Patient's noncompliance with other medical treatment and regimen; M65.9 Synovitis and tenosynovitis, unspecified; L97.519 Non-pressure chronic ulcer of other part of right foot with unspecified severity; Z83.79 Family history of other diseases of the digestive system; E11.621 Type 2 diabetes mellitus with foot ulcer; B95.1 Streptococcus, group B, as the cause of diseases classified elsewhere
CPT/HCPCS: 36415; 73630; 96374; 99285; S0020; 36573; 80048; 80053; 80061; 80202; 82040; 82550; 82962; 83036; 85025; 85651; 86140; 87040; 87070; 87075; 87147; 87186; 87205; 87635; 88305; 88311; G0378; J0696; J0878; J1100; J1644; J1885; J2250; J2405; J2704; J3010; J3370; J3480; A9575; C1751; J0330; J1815; J7030; J7040; J7050